=== PATIENT | male | born 1960 | race Caucasian/White ===

== ENCOUNTER 2019-07-26 06:13 | Emergency (ER) | payer BC ==
[2019-07-26] MEDS ORDERED: SODIUM CHLORIDE 0.9% 1,000 ML IV ONE ×2 (06:31→09:15)
--- NOTE | 2019-07-26 06:41 | ED ---
Abdominal Pain HPI - General Chief Complaint: Abdominal Pain Stated Complaint: Constipation Time Seen by Provider: 07/26/19 06:19 Source: patient Mode of arrival: ambulatory Limitations: no limitations - History of Present Illness Initial Comments: 59-year-old male with nose after past medical history presents today for chief complaint of no bowel movement 4 days. Patient states that he usually has to bowel movement movements a day. He states for the past 4 days he has not had a bowel movement. Patient states the only changes to his diet is decrease in fiber. Patient denies any upper abdominal pain and vomiting fevers. Patient states it is a crampy abdominal pain without radiation diffuse of the lower abdomen. Patient denies any melanotic stools or hematochezia. Patient denies testicular pain or any other complaints. Remaining review of systems negative upon arrival patient appears nontoxic. VS stable. He shouldn't took 2 sennacot tablets at 9PM last night. - Related Data Home Medications Medication Instructions Recorded Confirmed EPINEPHrine (Auto Inject) [Epipen] 0.3 mg IM ONCE PRN 07/26/19 07/26/19 Ibuprofen [Advil] 400 mg PO Q8HR PRN 07/26/19 07/26/19 Multivitamins, Thera [Multivitamin 1 tab PO DAILY 07/26/19 07/26/19 (formulary)] Previous Rx's Medication Instructions Recorded Docusate [Colace] 100 mg PO DAILY 7 Days #7 capsule 07/26/19 Allergies Allergy/AdvReac Type Severity Reaction Status Date / Time bee venom protein (honey bee) Allergy Anaphylaxis Verified 07/26/19 07:38 Review of Systems ROS Statement: Those systems with pertinent positive or pertinent negative responses have been documented in the HPI. ROS Other: All systems not noted in ROS Statement are negative. Past Medical History Past Medical History: No Reported History History of Any Multi-Drug Resistant Organisms: None Reported Past Surgical History: No Surgical Hx Reported Past Psychological History: No Psychological Hx Reported Smoking Status: Never smoker Past Alcohol Use History: None Reported Past Drug Use History: None Reported General Exam - General Exam Comments Initial Comments: General: The patient is awake and alert, appears uncomfortable Eye: Pupils are equal, round and reactive to light, extra-ocular movements are intact. No nystagmus. There is normal conjunctiva bilaterally. No signs of icterus. Ears, nose, mouth and throat: There are moist mucous membranes and no oral lesions. Neck: The neck is supple, there is no tenderness or JVD. Cardiovascular: There is a regular rate and rhythm. No murmur, rub or gallop is appreciated. Respiratory: Lungs are clear to auscultation, respirations are non-labored, breath sounds are equal. No wheezes, stridor, rales, or rhonchi. Gastrointestinal: distended diffusely tender abdomen without masses or organomegaly noted. No rebound, slight guarding. Active bowel sounds. Musculoskeletal: Normal ROM, no tenderness. Strength 5/5. Sensation intact. Pulses equal bilaterally 2+. Neurological: A&O x 3. CN II-XII intact grossly, There are no obvious motor or sensory deficits. Coordination appears grossly intact. Speech is normal. Skin: Skin is warm and dry and no rashes or lesions are noted. Psychiatric: Cooperative, appropriate mood & affect, normal judgment. Limitations: no limitations Course Vital Signs 07/26/19 07/26/19 07/26/19 06:14 07:01 08:48 Temperature 97.9 F 97 F L Pulse Rate 70 97 78 Respiratory 18 18 16 Rate Blood Pressure 129/84 153/72 156/75 O2 Sat by Pulse 98 100 99 Oximetry - Reevaluation(s) Reevaluation #1: 07/26/19 07:56 Updated patient on delay, awaiting CT read, patient resting comfortably after morphine administration Reevaluation #2: 07/26/19 11:07 Patient had a large bowel movement, I did see an extremely large amount of stool in bedside commode. Patient stating "can i get dressed I feel so much better" ready to go home. Medical Decision Making - Medical Decision Making 59-year-old male presents emergency department for chief complaint of constipation. Significant fecal impaction upon imaging studies. No obstructive process. Patient given 2 enemas with the second being successful extremely large bowel movement. Patient states he has complete resolution of pain he is feeling better and would like to be discharged home at this time. Imaging studies were reviewed by my attending provider as well as laboratory studies at this time attending provider agreeable to discharge home with PCP f/u. - Lab Data Result diagrams: 07/26/19 06:40 07/26/19 06:40 Lab Results 11/18/19 11/18/19 11/18/19 Range/Units 06:40 06:40 08:50 WBC 16.0 H (3.8-10.6) k/uL RBC 4.86 (4.30-5.90) m/uL Hgb 15.8 (13.0-17.5) gm/dL Hct 46.0 (39.0-53.0) % MCV 94.6 (80.0-100.0) fL MCH 32.4 (25.0-35.0) pg MCHC 34.3 (31.0-37.0) g/dL RDW 12.4 (11.5-15.5) % Plt Count 329 (150-450) k/uL Neutrophils % 91 % Lymphocytes % 5 % Monocytes % 3 % Eosinophils % 1 % Basophils % 0 % Neutrophils # 14.5 H (1.3-7.7) k/uL Lymphocytes # 0.8 L (1.0-4.8) k/uL Monocytes # 0.4 (0-1.0) k/uL Eosinophils # 0.1 (0-0.7) k/uL Basophils # 0.1 (0-0.2) k/uL Sodium 139 (137-145) mmol/L Potassium 4.1 (3.5-5.1) mmol/L Chloride 105 (98-107) mmol/L Carbon Dioxide 23 (22-30) mmol/L Anion Gap 11 mmol/L BUN 20 (9-20) mg/dL Creatinine 0.84 (0.66-1.25) mg/dL Est GFR (CKD-EPI)AfAm >90 (>60 ml/min/1.73 sqM) Est GFR (CKD-EPI)NonAf >90 (>60 ml/min/1.73 sqM) Glucose 165 H (74-99) mg/dL Plasma Lactic Acid Enrike (0.7-2.0) mmol/L Calcium 9.9 (8.4-10.2) mg/dL Total Bilirubin 0.6 (0.2-1.3) mg/dL AST 31 (17-59) U/L ALT 44 (21-72) U/L Alkaline Phosphatase 80 (38-126) U/L Total Protein 7.6 (6.3-8.2) g/dL Albumin 4.6 (3.5-5.0) g/dL Amylase 104 (30-110) U/L Lipase 108 (23-300) U/L Urine Color Yellow Urine Appearance Clear (Clear) Urine pH 5.5 (5.0-8.0) Ur Specific Morral 1.035 (1.001-1.035) Urine Protein Negative (Negative) Urine Glucose (UA) Trace H (Negative) Urine Ketones Trace H (Negative) Urine Blood Negative (Negative) Urine Nitrite Negative (Negative) Urine Bilirubin Negative (Negative) Urine Urobilinogen <2.0 (<2.0) mg/dL Ur Leukocyte Esterase Negative (Negative) 07/26/19 Range/Units 08:50 WBC (3.8-10.6) k/uL RBC (4.30-5.90) m/uL Hgb (13.0-17.5) gm/dL Hct (39.0-53.0) % MCV (80.0-100.0) fL MCH (25.0-35.0) pg MCHC (31.0-37.0) g/dL RDW (11.5-15.5) % Plt Count (150-450) k/uL Neutrophils % % Lymphocytes % % Monocytes % % Eosinophils % % Basophils % % Neutrophils # (1.3-7.7) k/uL Lymphocytes # (1.0-4.8) k/uL Monocytes # (0-1.0) k/uL Eosinophils # (0-0.7) k/uL Basophils # (0-0.2) k/uL Sodium (137-145) mmol/L Potassium (3.5-5.1) mmol/L Chloride (98-107) mmol/L Carbon Dioxide (22-30) mmol/L Anion Gap mmol/L BUN (9-20) mg/dL Creatinine (0.66-1.25) mg/dL Est GFR (CKD-EPI)AfAm (>60 ml/min/1.73 sqM) Est GFR (CKD-EPI)NonAf (>60 ml/min/1.73 sqM) Glucose (74-99) mg/dL Plasma Lactic Acid Enrike 2.1 H* (0.7-2.0) mmol/L Calcium (8.4-10.2) mg/dL Total Bilirubin (0.2-1.3) mg/dL AST (17-59) U/L ALT (21-72) U/L Alkaline Phosphatase (38-126) U/L Total Protein (6.3-8.2) g/dL Albumin (3.5-5.0) g/dL Amylase (30-110) U/L Lipase (23-300) U/L Urine Color Urine Appearance (Clear) Urine pH (5.0-8.0) Ur Specific Morral (1.001-1.035) Urine Protein (Negative) Urine Glucose (UA) (Negative) Urine Ketones (Negative) Urine Blood (Negative) Urine Nitrite (Negative) Urine Bilirubin (Negative) Urine Urobilinogen (<2.0) mg/dL Ur Leukocyte Esterase (Negative) Disposition Clinical Impression: Constipation, Fecal impaction Disposition: HOME SELF-CARE Condition: Good Instructions (If sedation given, give patient instructions): Constipation (ED), High Fiber Diet (ED) Additional Instructions: Please use medication as discussed. Please follow-up with family doctor in the next 2 days, increase fluids, take daily stool softner and increase f iber as discussed. Please return to emergency room if the symptoms increase or worsen or for any other concerns. Is patient prescribed a controlled substance at d/c from ED?: No Referrals: Lester Barber DO [Primary Care Provider] - 1-2 days Time of Disposition: 11:09
[2019-07-26] MEDS ORDERED: SODIUM CHLORIDE 0.9% 1,000 ML IV SCH (06:45)
[2019-07-26] MEDS ORDERED: MORPHINE SULFATE 4 MG/ML SYRINGE IVP STA ×2 (06:54→09:09)
[2019-07-26 06:55] LABS: Basophils # (A) 0.1 k/uL (0-0.2); Basophils % (A) 0 %; Eosinophils # (A) 0.1 k/uL (0-0.7); Eosinophils % (A) 1 %; HGB 15.8 gm/dL (13.0-17.5); Lymphocytes # (A) 0.8 k/uL (1.0-4.8); Lymphocytes % (A) 5 %; MCH 32.4 pg (25.0-35.0); MCHC 34.3 g/dL (31.0-37.0); MCV 94.6 fL (80.0-100.0); Mean Platelet Volume 6.8; Monocytes # (A) 0.4 k/uL (0-1.0); Monocytes % (A) 3 %; Neutrophils # (A) 14.5 k/uL (1.3-7.7); Neutrophils % (A) 91 %; Platelet Count 329 k/uL (150-450); RBC 4.86 m/uL (4.30-5.90); RDW 12.4 % (11.5-15.5)
--- NOTE | 2019-07-26 06:55 | XR ---
EXAMINATION TYPE: XR KUB DATE OF EXAM: 07/26/2019 COMPARISON: NONE HISTORY: Constipation. Abdominal pain TECHNIQUE: 2 views upright FINDINGS: There is no sign of intestinal obstruction or pneumoperitoneum. Fecal pattern is fairly nor mal. Lung bases are clear. There are no pathologic calcifications. There is no sign of a mass. IMPRESSION: Nonacute abdomen.
[2019-07-26 07:03] LABS: ALT 44 U/L (21-72); AST 31 U/L (17-59); African American GFR (CKD) >90 (>60 ml/min/1.73 sqM); Albumin 4.6 g/dL (3.5-5.0); Alkaline Phosphatase 80 U/L (38-126); Amylase 104 U/L (30-110); Anion Gap 11 mmol/L; Blood Urea Nitrogen 20 mg/dL (9-20); Calcium 9.9 mg/dL (8.4-10.2); Carbon Dioxide 23 mmol/L (22-30); Chloride 105 mmol/L (98-107); Glucose 165 mg/dL (74-99); Non-African American GFR(CKD) >90 (>60 ml/min/1.73 sqM); Potassium 4.1 mmol/L (3.5-5.1); Sodium 139 mmol/L (137-145); Total Bilirubin 0.6 mg/dL (0.2-1.3); Total Protein 7.6 g/dL (6.3-8.2)
--- NOTE | 2019-07-26 07:59 | CT ---
EXAMINATION TYPE: CT abdomen pelvis w con DATE OF EXAM: 07/26/2019 COMPARISON: Radiograph today HISTORY: 59-year-old male Significant abdominal pain, r/o obstruction TECHNIQUE: Contiguous axial scanning of the abdomen and pelvis following administration of 100 ml Iso jamila 300 IV contrast. Delayed images through the kidneys and coronal/sagittal reconstructions perform ed. CT DLP: 1079.8 mGycm Automated exposure control for dose reduction was used. 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 Heart normal size without pericardial. Lung bases c lear without pleural effusion. Small hiatal hernia. No focal liver lesion or biliary ductal dilatation. Portal venous system is patent. Gallbladder, adrenal glands, kidneys, spleen, and pancreas appear within normal limits. Borderline sized central mesenteric lymph nodes measuring up to 7 mm, refer to coronal image 39. Small fatty umbilical hernia. Single prominent fluid-filled small bowel loop in the left mid abdomen measuring 2.2 cm. No dilated s mall bowel, free fluid, or free air. Normal appendix. Liquid stool within the colon and large amount of solid stool distending the rectum up to 8.2 cm by with mild rectal wall thickening and mild presacral soft tissue thickening. Marked urinary bladder distention measuring up to 14.4 cm. Prostate gland 4.5 cm wide. No abnormal fl uid collection the pelvis or pelvic lymphadenopathy. Bones: Degenerative changes at the left greater than right SI joints and mild facet arthropathy lower lumbar spine. IMPRESSION: 1. Large stool ball distending the rectum up to 8.2 cm wide. Correlate for fecal impaction. 2. There is corresponding circumferential rectal wall thickening and presacral edema. Findings could be secondary to a nonspecific colitis, reactive to the excessive rectal distention with venous conges tion, or represent an early ischemic stercoral colitis. Clinically correlate. 3. Additional scattered liquid stool in the colon could also be from colitis. 4. Marked urinary bladder distention up to 14.4 cm. Correlate to ensure that this represents voluntar y retention. 5. Numerous borderline sized mesenteric lymph nodes likely reactive.
[2019-07-26 09:43] LABS: Appearance,Urine Clear (Clear); Bilirubin,Urine Negative (Negative); Blood,Urine Negative (Negative); Color,Urine Yellow; Glucose,Urine (UA) Trace (Negative); Ketones,Urine Trace (Negative); Leukocyte Esterase,Urine Negative (Negative); Nitrite,Urine Negative (Negative); PH, Urine 5.5 (5.0-8.0); Protein,Urine Negative (Negative); Specific Gravity,Urine 1.035 (1.001-1.035); Urobilinogen,Urine <2.0 mg/dL (<2.0)
[2019-07-26 11:17] VITALS: BP 131/88; PULSE 68; RESP 18; TEMP 98
== END 2019-07-26 11:28 | disposition home or self-care (01) ==
LOC: EC 06:13
DX: K56.41 Fecal impaction (principal); Z91.030 Bee allergy status
CPT/HCPCS: 36415; 80053; 82150; 83605; 83690; 85025; 81003; 74018; 74177; 99284; 96374; 96376; 96361 ×4; J2270; Q9967

== ENCOUNTER → 2019-07-27 | Outpatient (CLI) | payer BC ==
--- NOTE | 2019-07-27 11:56 | XR ---
EXAMINATION TYPE: XR abdomen 1V DATE OF EXAM: 07/27/2019 11:39 AM CLINICAL HISTORY: Fecal impaction. TECHNIQUE: 3 supine KUB images of the abdomen are obtained. COMPARISON: Abdominal x-ray and CT earlier today. FINDINGS: Scattered gas is seen in non-distended small bowel loops. Gas and fecal material is seen in non-distended colon. Improvement in degree of gaseous distention of colon and air-fluid levels on cu rrent study. There is no suspicious calcification appreciated. The lung bases are clear and the osseo us structures are intact. IMPRESSION: Overall nonobstructive bowel gas pattern now present.
== END ==
LOC: RADXRMAIN 11:08
PROVIDERS: ATTEND Family Medicine
DX: R14.0 Abdominal distension (gaseous) (principal)
CPT/HCPCS: 74018

== ENCOUNTER 2024-06-25 16:30 | Emergency (ER) | payer BC ==
--- NOTE | 2024-06-25 17:32 | ED ---
Neuro HPI - General Source: patient, RN notes reviewed Mode of arrival: ambulatory Limitations: no limitations - History of Present Illness Is the patient presenting with stroke symptoms?: No <Yaneth Roy - Last Filed: 06/25/24 17:30> <Sukhwinder Young - Last Filed: 06/25/24 21:34> - General Chief Complaint: Neuro Symptoms/Deficit Stated Complaint: facial numbness,R side numbness Time Seen by Provider: 06/25/24 17:30 - History of Present Illness Initial Comments: Quick [id number] male with no significant past medical history presenting to the ER with chief complaint of right sided facial numbness x 7 months. States he intermittently experiences numbness in his right lips and tongue as well as his right hand. States this has been ongoing for the past 7 months. Reports about 3-4 episodes of the numbness per week. Denies chest pain, shortness of breath, lightheadedness, vision changes. States he told his family about his symptoms today which prompted them to bring him to the ER for evaluation. Takes baby aspirin daily, denies blood thinners. (Yaneth Roy) Agree with above except the patient tells me that the episodes have been going on for a little over 2 months. He states that the episodes of numbness last approximately 20 minutes at a time. He states there is no reliable trigger or any relieving factors. Not noted associated symptoms. (Sukhwinder Young) - Related Data Home Medications: Home Medications Medication Instructions Recorded Confirmed EPINEPHrine (Auto Inject) [Epipen] 0.3 mg IM ONCE PRN 07/26/19 07/26/19 Ibuprofen [Advil] 400 mg PO Q8HR PRN 07/26/19 07/26/19 Multivitamins, Thera [Multivitamin 1 tab PO DAILY 07/26/19 07/26/19 (formulary)] Previous Rx's Medication Instructions Recorded Docusate [Colace] 100 mg PO DAILY 7 Days #7 capsule 07/26/19 Allergies/Adverse Reactions: Allergies Allergy/AdvReac Type Severity Reaction Status Date / Time bee venom protein (honey bee) Allergy Anaphylaxis Verified 06/25/24 17:07 Review of Systems ROS Other: All systems not noted in ROS Statement are negative. <Yaneth Roy - Last Filed: 06/25/24 17:30> ROS Other: All systems not noted in ROS Statement are negative. <HannahSukhwinder - Last Filed: 06/25/24 21:34> ROS Statement: Those systems with pertinent positive or pertinent negative responses have been documented in the HPI. General Exam Limitations: no limitations <RoyYaneth - Last Filed: 06/25/24 17:30> - General Exam Comments Initial Comments: Visual Physical Exam Vital signs reviewed General: Well-appearing, nontoxic, no acute distress. Head: Normocephalic, atraumatic Eyes: PERRLA, EOMI ENT: Airway patent Chest: Nonlabored breathing Skin: No visual rash, normal skin tone Neuro: Alert and oriented 3 Musculoskeletal: No gross abnormalities (Yaneth Roy) Stroke MDM <Yaneth Roy - Last Filed: 06/25/24 17:30> - Lab Data Result diagrams: 06/25/24 17:36 06/25/24 17:27 - EKG Data -: EKG Interpreted by Al EKG shows normal: sinus rhythm, axis (Normal), intervals ( normal), QRS comple xes (Normal), ST-T waves (Normal) Rate: normal (74 bpm) Interpretation: normal EKG <CjshadeSukhwinder - Last Filed: 06/25/24 21:34> - Lab Data Lab Results 06/25/24 06/25/24 06/25/24 Range/Units 17:27 17:27 17:27 WBC (3.8-10.6) k/uL RBC (4.30-5.90) m/uL Hgb (13.0-17.5) gm/dL Hct (39.0-53.0) % MCV (80.0-100.0) fL MCH (25.0-35.0) pg MCHC (31.0-37.0) g/dL RDW (11.5-15.5) % Plt Count (150-450) k/uL MPV Neutrophils % % Lymphocytes % % Monocytes % % Eosinophils % % Basophils % % Neutrophils # (1.3-7.7) k/uL Lymphocytes # (1.0-4.8) k/uL Monocytes # (0-1.0) k/uL Eosinophils # (0-0.7) k/uL Basophils # (0-0.2) k/uL PT 9.7 L (10.0-12.5) sec INR 0.9 (<1.2) APTT 25.3 (22.0-30.0) sec Sodium (137-145) mmol/L Potassium (3.5-5.1) mmol/L Chloride (98-107) mmol/L Carbon Dioxide (22-30) mmol/L Anion Gap mmol/L BUN (9-20) mg/dL Creatinine (0.66-1.25) mg/dL Est GFR (CKD-EPI)AfAm (>60 ml/min/1.73 sqM) Est GFR (CKD-EPI)NonAf (>60 ml/min/1.73 sqM) Glucose (74-99) mg/dL Lactic Ac Sepsis Rflx Plasma Lactic Acid Enrike 7.3 H* (0.7-2.0) mmol/L Calcium (8.4-10.2) mg/dL Total Bilirubin (0.2-1.3) mg/dL AST (17-59) U/L ALT (4-49) U/L Alkaline Phosphatase (38-126) U/L Creatine Kinase 203 H (55-170) U/L Troponin I (0.000-0.034) ng/mL Total Protein (6.3-8.2) g/dL Albumin (3.5-5.0) g/dL 06/25/24 06/25/24 06/25/24 Range/Units 17:27 17:27 17:36 WBC 8.0 (3.8-10.6) k/uL RBC 4.89 (4.30-5.90) m/uL Hgb 15.9 (13.0-17.5) gm/dL Hct 46.2 (39.0-53.0) % MCV 94.4 (80.0-100.0) fL MCH 32.4 (25.0-35.0) pg MCHC 34.4 (31.0-37.0) g/dL RDW 12.9 (11.5-15.5) % Plt Count 292 (150-450) k/uL MPV 8.0 Neutrophils % 57 % Lymphocytes % 29 % Monocytes % 7 % Eosinophils % 4 % Basophils % 1 % Neutrophils # 4.6 (1.3-7.7) k/uL Lymphocytes # 2.3 (1.0-4.8) k/uL Monocytes # 0.6 (0-1.0) k/uL Eosinophils # 0.3 (0-0.7) k/uL Basophils # 0.1 (0-0.2) k/uL PT (10.0-12.5) sec INR (<1.2) APTT (22.0-30.0) sec Sodium 136 L (137-145) mmol/L Potassium 3.7 (3.5-5.1) mmol/L Chloride 99 (98-107) mmol/L Carbon Dioxide 22 (22-30) mmol/L Anion Gap 15 mmol/L BUN 19 (9-20) mg/dL Creatinine 0.83 (0.66-1.25) mg/dL Est GFR (CKD-EPI)AfAm >90 (>60 ml/min/1.73 sqM) Est GFR (CKD-EPI)NonAf >90 (>60 ml/min/1.73 sqM) Glucose 128 H (74-99) mg/dL Lactic Ac Sepsis Rflx Plasma Lactic Acid Enrike (0.7-2.0) mmol/L Calcium 9.0 (8.4-10.2) mg/dL Total Bilirubin 0.5 (0.2-1.3) mg/dL AST 31 (17-59) U/L ALT 23 (4-49) U/L Alkaline Phosphatase 75 (38-126) U/L Creatine Kinase (55-170) U/L Troponin I <0.012 (0.000-0.034) ng/mL Total Protein 7.5 (6.3-8.2) g/dL Albumin 4.5 (3.5-5.0) g/dL 06/25/24 Range/Units 18:05 WBC (3.8-10.6) k/uL RBC (4.30-5.90) m/uL Hgb (13.0-17.5) gm/dL Hct (39.0-53.0) % MCV (80.0-100.0) fL MCH (25.0-35.0) pg MCHC (31.0-37.0) g/dL RDW (11.5-15.5) % Plt Count (150-450) k/uL MPV Neutrophils % % Lymphocytes % % Monocytes % % Eosinophils % % Basophils % % Neutrophils # (1.3-7.7) k/uL Lymphocytes # (1.0-4.8) k/uL Monocytes # (0-1.0) k/uL Eosinophils # (0-0.7) k/uL Basophils # (0-0.2) k/uL PT (10.0-12.5) sec INR (<1.2) APTT (22.0-30.0) sec Sodium (137-145) mmol/L Potassium (3.5-5.1) mmol/L Chloride (98-107) mmol/L Carbon Dioxide (22-30) mmol/L Anion Gap mmol/L BUN (9-20) mg/dL Creatinine (0.66-1.25) mg/dL Est GFR (CKD-EPI)AfAm (>60 ml/min/1.73 sqM) Est GFR (CKD-EPI)NonAf (>60 ml/min/1.73 sqM) Glucose (74-99) mg/dL Lactic Ac Sepsis Rflx Y Plasma Lactic Acid Enrike (0.7-2.0) mmol/L Calcium (8.4-10.2) mg/dL Total Bilirubin (0.2-1.3) mg/dL AST (17-59) U/L ALT (4-49) U/L Alkaline Phosphatase (38-126) U/L Creatine Kinase (55-170) U/L Troponin I (0.000-0.034) ng/mL Total Protein (6.3-8.2) g/dL Albumin (3.5-5.0) g/dL - Medical Decision Making I completed the quick note portion of this chart signed Yaneht Roy PA-C (Yaneth Roy) The patient had chest x-ray that I interpreted as negative for acute infiltrate, pneumothorax, congestive heart failure. The patient had CT scan of the brain that I interpreted as negative for acute bony injury, negative for acute intracranial hemorrhage or mass effect. I reviewed results with the patient who continues to be asymptomatic. In reference to the lactic acid, the patient states that he has not had anything to drink since the morning and that he also has not had anything to eat. Suspect that this is the underlying cause as he is completely asymptomatic and feels well. The patient was offered the repeat lactic after IV fluid but wants to go home and states he will return if the symptoms do recur. Patient otherwise going to follow-up with neurology in the near term. Discussed appropriate further care and follow-up as well as return parameters. (Sukhwinder Young) Past Medical History Past Medical History: No Reported History History of Any Multi-Drug Resistant Organisms: None Reported Past Surgical History: No Surgical Hx Reported Past Psychological History: No Psychological Hx Reported Smoking Status: Never smoker Past Alcohol Use History: None Reported Past Drug Use History: None Reported <Yaneth Roy - Last Filed: 06/25/24 17:30> Course Vital Signs 06/25/24 17:00 Temperature 98.6 F Pulse Rate 89 Respiratory 20 Rate Blood Pressure 170/86 O2 Sat by Pulse 98 Oximetry Disposition <Yaneth Roy - Last Filed: 06/25/24 17:30> Is patient prescribed a controlled substance at d/c from ED?: No <Sukhwinder Young - Last Filed: 06/25/24 21:34> Clinical Impression: Paresthesia, Lactic acidosis Disposition: HOME SELF-CARE Condition: Good Instructions (If sedation given, give patient instructions): Paresthesia (ED) Referrals: Lester Barber DO [Primary Care Provider] - 1-2 days June Pretty MD [REFERRING] - 1-2 days
[2024-06-25 17:52] LABS: Basophils # (A) 0.1 k/uL (0-0.2); Basophils % (A) 1 %; Eosinophils # (A) 0.3 k/uL (0-0.7); Eosinophils % (A) 4 %; HCT 46.2 % (39.0-53.0); HGB 15.9 gm/dL (13.0-17.5); Lymphocytes # (A) 2.3 k/uL (1.0-4.8); Lymphocytes % (A) 29 %; MCH 32.4 pg (25.0-35.0); MCHC 34.4 g/dL (31.0-37.0); MCV 94.4 fL (80.0-100.0); Monocytes # (A) 0.6 k/uL (0-1.0); Monocytes % (A) 7 %; Neutrophils # (A) 4.6 k/uL (1.3-7.7); Neutrophils % (A) 57 %; Platelet Count 292 k/uL (150-450); RBC 4.89 m/uL (4.30-5.90); RDW 12.9 % (11.5-15.5)
[2024-06-25 18:02] LABS: ALT 23 U/L (4-49); AST 31 U/L (17-59); African American GFR (CKD) >90 (>60 ml/min/1.73 sqM); Albumin 4.5 g/dL (3.5-5.0); Alkaline Phosphatase 75 U/L (38-126); Anion Gap 15 mmol/L; Blood Urea Nitrogen 19 mg/dL (9-20); Carbon Dioxide 22 mmol/L (22-30); Chloride 99 mmol/L (98-107); Glucose 128 mg/dL (74-99); Non-African American GFR(CKD) >90 (>60 ml/min/1.73 sqM); Potassium 3.7 mmol/L (3.5-5.1); Sodium 136 mmol/L (137-145); Total Bilirubin 0.5 mg/dL (0.2-1.3); Total Protein 7.5 g/dL (6.3-8.2)
[2024-06-25 18:06] LABS: INR 0.9 (<1.2); Partial Thromboplastin Time 25.3 sec (22.0-30.0); Prothrombin Time 9.7 sec (10.0-12.5)
--- NOTE | 2024-06-25 19:04 | CT ---
EXAMINATION TYPE: CT brain wo con DATE OF EXAM: 06/25/2024 COMPARISON: None INDICATION: Right sided facial numbess x 7 months. DLP: 1154.4 mGycm, Automated exposure control for dose reduction was used. CONTRAST: None CT of the brain is performed utilizing 3 mm thick sections through the posterior fossa and 3 mm thick sections through the remaining calvarium. Study is performed within 24 hours of arrival to the hosp ital. No abnormal hyperdensity is present to suggest an acute intracranial hemorrhage. No mass lesion is evident. No acute infarcts are evident. Ventricles and sulci are appropriate for the patient age. Mild mucosal thickening is within ethmoid air cells and maxillary sinuses. Air-fluid level may be wit hin the bilateral maxillary sinuses. Correlate for acute sinusitis IMPRESSION: 1. No acute intracranial process. Follow up MRI can be performed as clinically indicated. 2. Clinical correlation recommended for acute bilateral maxillary sinusitis. Some chronic sinusitis c hanges may be within the ethmoid air cells. [facility], Workstation: [facility], 06/25/2024 7:02 PM
--- NOTE | 2024-06-25 19:32 | XR ---
EXAMINATION TYPE: XR chest 2V DATE OF EXAM: 06/25/2024 COMPARISON: None INDICATION: Altered mental status TECHNIQUE: Frontal and lateral views of the chest are obtained. FINDINGS: The heart size is normal. The pulmonary vasculature is normal. The lungs are clear. IMPRESSION: 1. No acute pulmonary process. [facility], Workstation: [facility], 06/25/2024 7:30 PM
[2024-06-25 22:00] VITALS: BP 157/83; PULSE 68; RESP 17; TEMP 97.6
== END 2024-06-25 22:00 | disposition home or self-care (01) ==
LOC: EC 16:30
CPT/HCPCS: 36415; 70450; 71046; 80053; 82550; 83605; 84484; 85025; 85610; 85730; 93005; 99285